=== PATIENT | female | born 1980 | race Caucasian/White ===

== ENCOUNTER 2017-02-03 05:44 | Emergency (ER) | payer BC ==
[~2017-02-03 05:44] MED LIST: ADVOCARE; ALEVE220 MG PO; CIPRO500 MG PO; COQ10200 MG PO; DIFLUCAN150 MG PO; NORCO 5/325 TAB1 TAB PO; PYRIDIUM200 M1 PO; PYRIDIUM200 MG PO; SIMVASTATIN20 MG PO; SIMVASTATIN5 MG PO; SKELAXIN800 MG PO; [UNRECOGNIZED DRUG - REMARK]
[2017-02-03] MEDS ORDERED: ZOLOFT50 M1 PO (06:02)
[2017-02-03 06:33] LABS: BASO % 0.3 % (0-2); HGB-HEMOGLOBIN 13.5 gm/dl (12.0-15.5); IMMATURE GRANULOCYTES ABSOLUTE 0.01 tho/cmm (0-0.03); IMMATURE GRANULOCYTES PERCENT 0.2 % (0-0.3); LYMPH % 11.4 % (20-45); LYMPH ABSOLUTE COUNT 0.7 tho/cmm (0.8-4.5); MCH (MEAN CORPUSCULAR HGB) 30.4 pg (28.0-32.0); MCHC MEAN CORPUSCULAR HGB CONC 34.6 % (32.0-36.0); MCV (MEAN CELL VOLUME) 87.8 fl (82.0-96.0); MEAN PLATELET VOLUME 9.7 cmc (9.4-12.4); MONO % 2.9 % (0-12); MONOCYTE ABSOLUTE COUNT 0.2 tho/cmm (0.0-1.2); NEUTROPHIL ABSOLUTE COUNT 5.5 tho/cmm (1.6-8.0); NEUTROPHIL-AUTOMATED 5.5 tho/cmm (1.6-8.0); NEUTROPHILS % 85.2 % (40-80); PLATELET COUNT 266 tho/cmm (150-450); RED BLOOD COUNT 4.44 mil/cmm (4.00-5.20); RED CELL DISTRIBUTION WIDTH 12.6 % (12.4-16.4); WHITE BLOOD COUNT 6.5 tho/cmm (4.0-10.0)
[2017-02-03 06:42] LABS: PREGNANCY-SERUM NEGATIVE (NEGATIVE)
[2017-02-03 06:53] LABS: ALKALINE PHOSPHATASE 51 U/L (33-138); ALT/SGPT 39 U/L (12-78); ANION GAP 15 mmol/L (0-20); AST/SGOT 30 U/L (10-40); BILIRUBIN,TOTAL 0.3 mg/dl (0-1.5); BLOOD UREA NITROGEN 12 mg/dl (6-24); CALCIUM 8.8 mg/dl (8.5-10.5); CARBON DIOXIDE-VENOUS 29 mmol/L (22-32); CHLORIDE 104 mmol/l (96-110); CREATININE 0.69 mg/dl (0.50-1.10); GLUCOSE 119 mg/dL (70-110); LIPASE 87 U/L (73-393); POTASSIUM 3.7 mmol/L (3.7-5.1); SODIUM 144 mmol/L (135-145); eGFR VALUE FOR BLACK >90 mL/Min
[2017-02-03 06:58] LABS: ALB/GLOB RATIO 1.1 (0.8-2.0); ALBUMIN 4.2 g/dl (3.5-5.0)
[2017-02-03] MEDS ORDERED: ZOFRAN4 M2 PO (08:19)
[2017-02-03 08:45] LABS: URINE BILIRUBIN NEGATIVE (NEG); URINE BLOOD NEGATIVE (NEG); URINE GLUCOSE (UA) NEGATIVE (NEG); URINE KETONE NEGATIVE (NEG); URINE LEUKOCYTE ESTERASE NEGATIVE (NEG); URINE NITRITE NEGATIVE (NEG); URINE PROTEIN NEGATIVE (NEG); URINE SPECIFIC GRAVITY 1.015 (1.003-1.030)
[2017-02-03 08:51] LABS: URINE APPEARANCE HAZY; URINE COLOR YELLOW
== END 2017-02-03 09:15 ==
LOC: EDMED 05:44
PROVIDERS: Emergency Medicine
DX: R51 Headache (principal); R11.2 Nausea with vomiting, unspecified; R19.7 Diarrhea, unspecified; S60.221A Contusion of right hand, initial encounter; X58.XXXA Exposure to other specified factors, initial encounter
CPT/HCPCS: J1200; J1885; J2270; J2405; J7030